=== PATIENT | male | born 1990 | race Caucasian/White ===

== ENCOUNTER 2017-09-19 07:55 | Emergency (ER) | payer MEDICAID ==
[~2017-09-19] VITALS: Ht 170.2 cm; Wt 170.2 kg
[2017-09-19 09:14] VITALS: BP 142/85
== END 2017-09-19 09:15 | disposition home or self-care (01) ==
LOC: ER 07:56
DX: S93.401A Sprain of unspecified ligament of right ankle, initial encounter (principal); X58.XXXA Exposure to other specified factors, initial encounter; Y93.89 Activity, other specified; Y92.89 Other specified places as the place of occurrence of the external cause; Y99.2 Volunteer activity
CPT/HCPCS: 73610; 99284

== ENCOUNTER 2017-09-21 18:50 | Emergency (ER) | payer MEDICAID ==
[~2017-09-21] VITALS: Ht 170.2 cm; Wt 168.0 kg
[2017-09-21 18:53] VITALS: BP 142/82
[2017-09-21] MEDS ORDERED: PANT-47 PO (19:15)
[2017-09-21] MEDS ORDERED: IBUP-1984 PO (19:15)
== END 2017-09-21 19:35 | disposition home or self-care (01) ==
LOC: ER 18:51
DX: G56.01 Carpal tunnel syndrome, right upper limb (principal)
CPT/HCPCS: 99283

== ENCOUNTER 2017-10-12 22:23 | Emergency (ER) | payer MEDICAID ==
[~2017-10-12] VITALS: Ht 170.2 cm; Wt 169.6 kg
[~2017-10-12 22:23] MED LIST: IBUP-1984 PO; PANT-47 PO
[2017-10-12 22:55] VITALS: BP 140/95
== END 2017-10-12 22:57 | disposition home or self-care (01) ==
LOC: ER 22:23
DX: S90.821A Blister (nonthermal), right foot, initial encounter (principal); Z79.899 Other long term (current) drug therapy; X58.XXXA Exposure to other specified factors, initial encounter; Y93.89 Activity, other specified; Y92.89 Other specified places as the place of occurrence of the external cause; Y99.8 Other external cause status
CPT/HCPCS: 99281

== ENCOUNTER 2017-10-15 22:51 | Emergency (ER) | payer MEDICAID ==
[~2017-10-15] VITALS: Ht 170.2 cm; Wt 167.5 kg
[2017-10-15 23:05] VITALS: BP 142/98
== END 2017-10-15 23:06 | disposition home or self-care (01) ==
LOC: ER 22:53
DX: F32.9 Major depressive disorder, single episode, unspecified (principal)
CPT/HCPCS: 99284

== ENCOUNTER 2017-10-30 06:04 | Emergency (ER) | payer MEDICAID ==
[~2017-10-30] VITALS: Ht 170.2 cm; Wt 172.0 kg
[~2017-10-30 06:04] MED LIST changes: -IBUP-1984 PO
[2017-10-30] MEDS ORDERED: diphenhydrAMINE 25 MG/10 ML UD oral solution PO ONE (06:35)
[2017-10-30 06:44] VITALS: BP 174/110
== END 2017-10-30 06:46 | disposition home or self-care (01) ==
LOC: ER 06:04
DX: J02.9 Acute pharyngitis, unspecified (principal); I10 Essential (primary) hypertension
CPT/HCPCS: 93005; 99283; Q0163

== ENCOUNTER 2018-01-31 11:30 | Emergency (ER) | payer MEDICAID ==
[2018-01-31 11:37] VITALS: BP 157/73
== END 2018-01-31 12:45 | disposition left against medical advice (07) ==
LOC: ER 11:31
DX: J02.9 Acute pharyngitis, unspecified (principal); Z53.21 Procedure and treatment not carried out due to patient leaving prior to being seen by health care provider

== ENCOUNTER 2018-02-01 00:38 | Emergency (ER) | payer MEDICAID ==
[~2018-02-01] VITALS: Ht 170.2 cm; Wt 179.9 kg
[2018-02-01 00:41] VITALS: BP 162/110
[2018-02-01 01:30] LABS: PARTIAL THROMBOPLASTIN TIME 30 SECONDS (22-32); PROTHROMBIN TIME 10.6 SECONDS (9.0-12.0)
[2018-02-01 01:34] LABS: ALANINE AMINOTRANSFERASE 46 U/L (12-78); ALBUMIN 3.8 G/DL (3.4-5.0); ALBUMIN/GLOBULIN RATIO 1.1 (1.1-1.5); ALKALINE PHOSPHATASE 37 IU/L (46-116); ANION GAP 9 (8-16); ASPARTATE AMINO TRANSFERASE 25 U/L (10-37); BILIRUBIN,TOTAL 0.6 MG/DL (0.1-1.0); BLOOD UREA NITROGEN 14 MG/DL (7-18); BUN/CREATININE RATIO 12.5 (5.4-32.0); CALCIUM 8.6 MG/DL (8.5-10.1); CHLORIDE 101 MMOL/L (99-107); CREATININE 1.12 MG/DL (0.60-1.10); GLUCOSE 105 MG/DL (70-104); POTASSIUM 3.9 MMOL/L (3.5-5.1); SODIUM 138 MMOL/L (135-145); TOTAL CARBON DIOXIDE 28.2 MMOL/L (24-32); TOTAL PROTEIN 7.3 G/DL (6.4-8.2); eGFR 78 ML/MIN
[2018-02-01] MEDS ORDERED: acetaminophen 325mg tablet PO ONE (02:20)
[2018-02-01 02:33] LABS: BASOPHILS % (AUTO) 0.2 % (0-1); EOSINOPHILS # (AUTO) 0.2 X10'3 (0-0.9); EOSINOPHILS % (AUTO) 3.4 % (0-6); HEMATOCRIT 43.5 % (42.0-52.0); HEMOGLOBIN 14.4 g/dl (14.0-17.9); LYMPHOCYTES # (AUTO) 1.4 X10'3 (1.1-4.8); LYMPHOCYTES % (AUTO) 20.1 % (21-51); MEAN CORPUSCULAR HEMOGLOBIN 25.2 PG (27.0-31.0); MEAN CORPUSCULAR HGB CONC 33.1 % (33.0-36.5); MEAN CORPUSCULAR VOLUME 76.2 FL (78-98); MEAN PLATELET VOLUME 9.3 FL (7.4-10.4); MONOCYTES # (AUTO) 1.3 X10'3 (0-0.9); PLATELET COUNT 214 X10'3 (140-440); RED BLOOD COUNT 5.71 X10'6 (4.70-6.10); RED CELL DISTRIBUTION WIDTH 14.9 % (11.5-14.5)
[2018-02-01 02:56] LABS: MONOCYTES % (AUTO) 18.3 % (2-12)
[2018-02-01 03:14] LABS: TOTAL CELLS COUNTED 100
[2018-02-01 03:15] LABS: PLATELET ESTIMATE NORMAL
[2018-02-02] MEDS ORDERED: FLUT16SP2 BOTHNARES (17:56)
[2018-02-02] MEDS ORDERED: LORA10TA61 PO (17:56)
== END 2018-02-01 03:12 | disposition home or self-care (01) ==
LOC: ER 00:38
DX: M94.0 Chondrocostal junction syndrome [Tietze] (principal); I10 Essential (primary) hypertension; G43.909 Migraine, unspecified, not intractable, without status migrainosus; E66.01 Morbid (severe) obesity due to excess calories
CPT/HCPCS: 36415; 71045; 80053; 84484; 85025; 85610; 85730; 93005; 99285

== ENCOUNTER 2018-02-02 16:46 | Emergency (ER) | payer MEDICAID ==
[~2018-02-02] VITALS: Ht 584.7 cm; Wt 176.0 kg
[2018-02-02 17:11] VITALS: BP 144/98
[2018-02-02] MEDS ORDERED: HYDROcodone/acetaminophen 5mg/325mg tablet PO ONE (17:55)
[2018-02-02] MEDS ORDERED: LORA10TA61 PO (17:56)
[2018-02-02] MEDS ORDERED: FLUT16SP2 BOTHNARES (17:56)
== END 2018-02-02 18:08 | disposition home or self-care (01) ==
LOC: ER 16:47
DX: J30.9 Allergic rhinitis, unspecified (principal); J02.9 Acute pharyngitis, unspecified; I10 Essential (primary) hypertension; Z79.899 Other long term (current) drug therapy
CPT/HCPCS: 99283

== ENCOUNTER 2018-02-12 09:47 | Emergency (ER) | payer MEDICAID ==
[~2018-02-12] VITALS: Ht 170.2 cm; Wt 145.4 kg
[~2018-02-12 09:47] MED LIST changes: +FLUT16SP2 BOTHNARES; +LORA10TA61 PO
[2018-02-12 09:53] VITALS: BP 131/88
[2018-02-12] MEDS ORDERED: AZIT-57 PO (13:12)
== END 2018-02-12 13:23 | disposition home or self-care (01) ==
LOC: ER 09:48
PROC: 3E1B78Z Irrigation of Ear using Irrigating Substance, Via Natural or Artificial Opening (ICD-10-PCS; principal; 2018-02-12)
DX: H61.21 Impacted cerumen, right ear (principal)
CPT/HCPCS: 69209; 99283

== ENCOUNTER 2018-04-05 04:16 | Emergency (ER) | payer MEDICAID ==
[~2018-04-05] VITALS: Ht 170.2 cm; Wt 174.3 kg
[2018-04-05 04:23] VITALS: BP 138/99
== END 2018-04-05 05:02 | disposition home or self-care (01) ==
LOC: ER 04:16
DX: R06.02 Shortness of breath (principal); I10 Essential (primary) hypertension; Z79.899 Other long term (current) drug therapy
CPT/HCPCS: 71045; 93005; 99284

== ENCOUNTER 2018-04-21 20:24 | Emergency (ER) | payer MEDICAID ==
[~2018-04-21] VITALS: Ht 170.2 cm; Wt 180.0 kg
[2018-04-21 20:27] VITALS: BP 145/89
[2018-04-21] MEDS ORDERED: sulfamethoxazole/trimethoprim DS (800/160mg) tablet PO ONE (22:05)
[2018-04-21] MEDS ORDERED: CEPH500C5 PO (22:05)
[2018-04-21] MEDS ORDERED: cephalexin 250mg capsule PO ONE (22:05)
[2018-04-21] MEDS ORDERED: SULF1TAB49 PO (22:05)
== END 2018-04-21 22:23 | disposition home or self-care (01) ==
LOC: ER 20:25
DX: L03.116 Cellulitis of left lower limb (principal); I10 Essential (primary) hypertension; Z79.899 Other long term (current) drug therapy
CPT/HCPCS: 99283

== ENCOUNTER 2018-04-22 19:17 | Emergency (ER) | payer MEDICAID ==
[~2018-04-22 19:17] MED LIST changes: +CEPH500C5 PO; +SULF1TAB49 PO
== END 2018-04-22 20:05 | disposition left against medical advice (07) ==
LOC: ER 19:18
DX: L02.818 Cutaneous abscess of other sites (principal); Z53.21 Procedure and treatment not carried out due to patient leaving prior to being seen by health care provider

== ENCOUNTER 2018-07-26 14:02 | Emergency (ER) | payer MEDICAID ==
[~2018-07-26] VITALS: Ht 170.2 cm; Wt 172.0 kg
[~2018-07-26 14:02] MED LIST changes: -SULF1TAB49 PO
[2018-07-26 14:09] VITALS: BP 146/92
[2018-07-26] MEDS ORDERED: PENI250T2 PO (14:13)
[2018-07-26] MEDS ORDERED: IBUP-1984 PO (14:24)
== END 2018-07-26 14:24 | disposition home or self-care (01) ==
LOC: ER 14:02
DX: K04.7 Periapical abscess without sinus (principal); I10 Essential (primary) hypertension; Z79.2 Long term (current) use of antibiotics; Z79.899 Other long term (current) drug therapy
CPT/HCPCS: 99283

== ENCOUNTER 2018-08-11 23:51 | Emergency (ER) | payer MEDICAID ==
[~2018-08-11] VITALS: Ht 170.2 cm; Wt 171.4 kg
[2018-08-11 23:51] VITALS: BP 163/91
[~2018-08-11 23:51] MED LIST changes: +IBUP-1984 PO
[2018-08-12] MEDS ORDERED: proCHLORperazine 10 MG/2 ml inj IM ONE (00:05)
[2018-08-12] MEDS ORDERED: diphenhydrAMINE 25mg capsule PO ONE (00:05)
[2018-08-12] MEDS ORDERED: ketorolac trometh inj. 60 MG/2 ML VIAL IM ONE (00:05)
[2018-08-12] MEDS: HYDROcodone/acetaminophen 5mg/325mg tablet PO ONE ×2 (00:45→00:48)
== END 2018-08-12 01:04 | disposition home or self-care (01) ==
LOC: ER 23:51
DX: H69.82 Other specified disorders of Eustachian tube, left ear (principal); I10 Essential (primary) hypertension; Z79.2 Long term (current) use of antibiotics; Z79.899 Other long term (current) drug therapy
CPT/HCPCS: 96372; 99283; J0780; J1885; Q0163

== ENCOUNTER 2018-09-17 08:57 | Emergency (ER) | payer MEDICAID ==
[~2018-09-17] VITALS: Ht 170.2 cm; Wt 170.0 kg
[~2018-09-17 08:57] MED LIST changes: -IBUP-1984 PO
[2018-09-17 09:01] VITALS: BP 165/113
== END 2018-09-17 10:04 | disposition home or self-care (01) ==
LOC: ER 08:57
DX: F31.9 Bipolar disorder, unspecified (principal); I10 Essential (primary) hypertension
CPT/HCPCS: 82948; 99284

== ENCOUNTER 2018-09-25 16:17 | Emergency (ER) | payer MEDICAID ==
[~2018-09-25] VITALS: Ht 170.2 cm; Wt 163.0 kg
[2018-09-25 16:38] VITALS: BP 149/92
[2018-09-25] MEDS ORDERED: DIVA500T4 PO (16:51)
== END 2018-09-25 17:01 | disposition home or self-care (01) ==
LOC: ER 16:18
DX: F31.9 Bipolar disorder, unspecified (principal); Z76.0 Encounter for issue of repeat prescription; I10 Essential (primary) hypertension; Z79.899 Other long term (current) drug therapy
CPT/HCPCS: 99283

== ENCOUNTER 2018-10-04 05:00 | Emergency (ER) | payer MEDICAID ==
[~2018-10-04] VITALS: Ht 170.2 cm; Wt 154.0 kg
[~2018-10-04 05:00] MED LIST changes: +DIVA500T4 PO
[2018-10-04 05:07] VITALS: BP 148/94
== END 2018-10-04 05:40 | disposition left against medical advice (07) ==
LOC: ER 05:01
DX: Z00.8 Encounter for other general examination (principal); Z53.21 Procedure and treatment not carried out due to patient leaving prior to being seen by health care provider

== ENCOUNTER 2018-10-06 00:09 | Emergency (ER) | payer MEDICAID ==
[~2018-10-06] VITALS: Ht 170.2 cm; Wt 152.7 kg
[2018-10-06 00:16] VITALS: BP 157/106
--- NOTE | 2018-10-06 01:02 | NUR ---
Arrives complaining of a plethra of complaints including blisters on his feet, not eating today "but that isn't really a problem", "I'm loosing weight, but I can't tell", "I can't make friends", "I really need a relationship in my life and can't find one"
== END 2018-10-06 01:15 | disposition home or self-care (01) ==
LOC: ER 00:09
DX: M79.671 Pain in right foot (principal); M79.672 Pain in left foot; I10 Essential (primary) hypertension; Z79.899 Other long term (current) drug therapy
CPT/HCPCS: 99281

== ENCOUNTER 2018-10-08 17:12 | Emergency (ER) | payer MEDICAID ==
[~2018-10-08] VITALS: Ht 170.2 cm; Wt 167.8 kg
[2018-10-08 17:16] VITALS: BP 137/102
[2018-10-08] MEDS ORDERED: TRIA15CR61 TP (17:39)
== END 2018-10-08 17:59 | disposition home or self-care (01) ==
LOC: ER 17:13
DX: S90.822A Blister (nonthermal), left foot, initial encounter (principal); S90.821A Blister (nonthermal), right foot, initial encounter; I10 Essential (primary) hypertension; X58.XXXA Exposure to other specified factors, initial encounter; Y93.89 Activity, other specified; Y92.89 Other specified places as the place of occurrence of the external cause; Y99.8 Other external cause status
CPT/HCPCS: 99283

== ENCOUNTER 2018-10-14 19:16 | Emergency (ER) | payer MEDICAID ==
[~2018-10-14] VITALS: Ht 170.2 cm; Wt 137.8 kg
[~2018-10-14 19:16] MED LIST changes: +TRIA15CR61 TP
[2018-10-14 19:20] VITALS: BP 159/93
[2018-10-14 20:55] LABS: ALANINE AMINOTRANSFERASE 27 U/L (12-78); ALBUMIN 3.6 G/DL (3.4-5.0); ALBUMIN/GLOBULIN RATIO 1.1 (1.1-1.5); ALKALINE PHOSPHATASE 35 IU/L (46-116); ANION GAP 8 (8-16); ASPARTATE AMINO TRANSFERASE 15 U/L (10-37); BILIRUBIN,TOTAL 0.3 MG/DL (0.1-1.0); BLOOD UREA NITROGEN 26 MG/DL (7-18); BUN/CREATININE RATIO 22.6 (5.4-32.0); CALCIUM 8.7 MG/DL (8.5-10.1); CHLORIDE 103 MMOL/L (99-107); CREATININE 1.15 MG/DL (0.60-1.10); GLUCOSE 91 MG/DL (70-104); POTASSIUM 4.2 MMOL/L (3.5-5.1); SODIUM 139 MMOL/L (135-145); TOTAL CARBON DIOXIDE 28.2 MMOL/L (24-32); eGFR 75 ML/MIN
== END 2018-10-14 21:25 | disposition home or self-care (01) ==
LOC: ER 19:16
DX: M79.18 Myalgia, other site (principal); R25.2 Cramp and spasm; I10 Essential (primary) hypertension; Z79.899 Other long term (current) drug therapy
CPT/HCPCS: 36415; 80053; 99283

== ENCOUNTER 2018-11-04 12:50 | Emergency (ER) | payer MEDICAID ==
[~2018-11-04] VITALS: Ht 170.2 cm; Wt 165.0 kg
[~2018-11-04 12:50] MED LIST changes: -DIVA500T4 PO
[2018-11-04] MEDS ORDERED: iohexol 300mg/ml 100ml inj. ONE (17:01)
[2018-11-04 17:12] LABS: BASOPHILS # (AUTO) 0.1 X10'3 (0-0.2); BASOPHILS % (AUTO) 0.7 % (0-1); EOSINOPHILS # (AUTO) 0.1 X10'3 (0-0.9); EOSINOPHILS % (AUTO) 0.7 % (0-6); HEMATOCRIT 43.3 % (42.0-52.0); HEMOGLOBIN 14.5 g/dl (14.0-17.9); LYMPHOCYTES # (AUTO) 1.6 X10'3 (1.1-4.8); LYMPHOCYTES % (AUTO) 13.3 % (21-51); MEAN CORPUSCULAR HGB CONC 33.4 g/dL (33.0-36.5); MEAN CORPUSCULAR VOLUME 74.9 FL (78-98); MONOCYTES # (AUTO) 1.6 X10'3 (0-0.9); MONOCYTES % (AUTO) 12.8 % (2-12); NEUTROPHILS # (AUTO) 8.8 X10'3 (1.8-7.7); NEUTROPHILS % (AUTO) 72.5 % (42-75); PLATELET COUNT 312 X10'3 (140-440); RED BLOOD COUNT 5.78 X10'6 (4.70-6.10); WHITE BLOOD COUNT 12.2 X10'3 (4.5-11.0)
[2018-11-04 17:13] LABS: CLARITY,URINE CLEAR (Clear); COLOR,URINE YELLOW (Yellow); GLUCOSE, URINE NEGATIVE (Neg); KETONES,URINE NEGATIVE (Neg); LEUKOCYTE ESTERASE ,URINE NEGATIVE (Neg); NITRITES, URINE NEGATIVE (Neg); OCCULT BLOOD,URINE NEGATIVE (Neg); PROTEIN,URINE NEGATIVE (Neg); UROBILINOGEN,URINE 0.2 E.U/dL (0.2-1.0)
[2018-11-04 17:23] LABS: UA COLLECTION TYPE URINAL
[2018-11-04 17:33] LABS: ALANINE AMINOTRANSFERASE 15 U/L (12-78); ALBUMIN 3.5 G/DL (3.4-5.0); ALBUMIN/GLOBULIN RATIO 0.9 (1.1-1.5); ALKALINE PHOSPHATASE 36 IU/L (46-116); ANION GAP 5 (8-16); ASPARTATE AMINO TRANSFERASE 12 U/L (10-37); BILIRUBIN,TOTAL 0.8 MG/DL (0.1-1.0); BLOOD UREA NITROGEN 16 MG/DL (7-18); BUN/CREATININE RATIO 16.5 (5.4-32.0); CHLORIDE 101 MMOL/L (99-107); CREATININE 0.97 MG/DL (0.60-1.10); GLUCOSE 93 MG/DL (70-104); POTASSIUM 3.6 MMOL/L (3.5-5.1); SODIUM 136 MMOL/L (135-145); TOTAL CARBON DIOXIDE 30.1 MMOL/L (24-32); TOTAL PROTEIN 7.4 G/DL (6.4-8.2); eGFR > 90 ML/MIN
[2018-11-04] MEDS ORDERED: CefTRIAXone/D5W-Rocephin 1gm 50 ML IV ONE (19:00)
[2018-11-04] MEDS ORDERED: CEPH-572 PO (19:06)
[2018-11-04] MEDS ORDERED: SULF1TAB49 PO (19:06)
[2018-11-04 19:27] VITALS: BP 124/71
[2018-11-05] MEDS ORDERED: CEPH-572 PO (08:48)
[2018-11-05] MEDS ORDERED: SULF1TAB49 PO (08:48)
== END 2018-11-04 19:58 | disposition home or self-care (01) ==
LOC: ER 12:50
DX: L03.314 Cellulitis of groin (principal); I10 Essential (primary) hypertension; Z79.899 Other long term (current) drug therapy
CPT/HCPCS: 36415; 74177; 80053; 81003; 83605; 84145; 85025; 87040; 93005; 96365; 99284; J0696; Q9967

== ENCOUNTER 2018-11-05 07:41 | Emergency (ER) | payer MEDICAID ==
[~2018-11-05 07:41] MED LIST changes: +CEPH-572 PO; +SULF1TAB49 PO
[2018-11-05 07:43] VITALS: BP 167/105
[2018-11-05] MEDS ORDERED: CEPH-572 PO (08:48)
[2018-11-05] MEDS ORDERED: SULF1TAB49 PO (08:48)
--- NOTE | 2018-11-05 08:52 | NUR ---
pt refused a new coat after he states he lost his coat in the waiting room yesterday. pt also refused a poncho after stating it's raining outside and pt is wet from the rain.
== END 2018-11-05 08:54 | disposition home or self-care (01) ==
LOC: ER 07:42
DX: L03.115 Cellulitis of right lower limb (principal); I10 Essential (primary) hypertension
CPT/HCPCS: 99283

== ENCOUNTER 2019-01-05 21:39 | Emergency (ER) | payer MEDICAID ==
[~2019-01-05] VITALS: Ht 172.7 cm; Wt 150.0 kg
[~2019-01-05 21:39] MED LIST changes: -CEPH-572 PO; -SULF1TAB49 PO; -TRIA15CR61 TP
[2019-01-06 00:57] LABS: BASOPHILS # (AUTO) 0.1 X10'3 (0-0.2); BASOPHILS % (AUTO) 0.6 % (0-1); EOSINOPHILS % (AUTO) 0.1 % (0-6); HEMATOCRIT 42.3 % (42.0-52.0); HEMOGLOBIN 13.8 g/dl (14.0-17.9); LYMPHOCYTES % (AUTO) 5.8 % (21-51); MEAN CORPUSCULAR HEMOGLOBIN 24.6 PG (27.0-31.0); MEAN CORPUSCULAR HGB CONC 32.6 g/dL (33.0-36.5); MEAN CORPUSCULAR VOLUME 75.4 FL (78-98); MEAN PLATELET VOLUME 9.4 FL (7.4-10.4); MONOCYTES % (AUTO) 11.6 % (2-12); NEUTROPHILS # (AUTO) 14.4 X10'3 (1.8-7.7); NEUTROPHILS % (AUTO) 81.9 % (42-75); PLATELET COUNT 279 X10'3 (140-440); RED BLOOD COUNT 5.61 X10'6 (4.70-6.10); RED CELL DISTRIBUTION WIDTH 16.9 % (11.5-14.5); WHITE BLOOD COUNT 17.6 X10'3 (4.5-11.0)
[2019-01-06 01:08] LABS: ALANINE AMINOTRANSFERASE 39 U/L (12-78); ALBUMIN/GLOBULIN RATIO 1.2 (1.1-1.5); ALKALINE PHOSPHATASE 40 IU/L (46-116); ANION GAP 11 (8-16); ASPARTATE AMINO TRANSFERASE 47 U/L (10-37); BILIRUBIN,TOTAL 1.1 MG/DL (0.1-1.0); BLOOD UREA NITROGEN 18 MG/DL (7-18); BUN/CREATININE RATIO 14.8 (5.4-32.0); CALCIUM 9.3 MG/DL (8.5-10.1); CHLORIDE 107 MMOL/L (99-107); CREATININE 1.22 MG/DL (0.60-1.10); GLUCOSE 113 MG/DL (70-104); POTASSIUM 3.9 MMOL/L (3.5-5.1); SODIUM 144 MMOL/L (135-145); TOTAL CARBON DIOXIDE 26.1 MMOL/L (24-32); TOTAL PROTEIN 7.4 G/DL (6.4-8.2); eGFR 70 ML/MIN
[2019-01-06 01:18] LABS: ETHANOL < 0.010 GM/DL (0.0-0.010)
--- NOTE | 2019-01-06 01:45 | NUR ---
Patient is lying in bed talking to himself quietly.
[2019-01-06 04:19] LABS: URINE AMPHETAMINE SCREEN NEGATIVE (Neg); URINE BARBITUATE SCREEN NEGATIVE (Neg); URINE BENZODIAZEPINES SCREEN NEGATIVE (Neg); URINE CANNABINOID SCREEN NEGATIVE (Neg); URINE COCAINE SCREEN NEGATIVE (Neg); URINE METHADONE SCREEN NEGATIVE (Neg); URINE OPIATE SCREEN NEGATIVE (Neg); URINE PHENCYCLIDINE SCREEN NEGATIVE (Neg)
[2019-01-06 04:34] LABS: CLARITY,URINE CLEAR (Clear); COLOR,URINE YELLOW (Yellow); GLUCOSE, URINE NEGATIVE (Neg); KETONES,URINE 40 mg/dl (Neg); LEUKOCYTE ESTERASE ,URINE NEGATIVE (Neg); NITRITES, URINE NEGATIVE (Neg); OCCULT BLOOD,URINE NEGATIVE (Neg); PH,URINE 5.5 (4.8-8.0); PROTEIN,URINE 30 mg/dl (Neg); UROBILINOGEN,URINE 0.2 E.U/dL (0.2-1.0)
[2019-01-06 04:36] LABS: UA COLLECTION TYPE CLN CATCH MIDSTREAM
[2019-01-06 04:39] LABS: BACTERIA,URINE FEW /HPF (Neg); RBC,URINE NONE SEEN /HPF (0-2); WBC,URINE 0-4 /HPF (0-4)
[2019-01-06 04:40] LABS: CELLULAR CAST 0-4 /LPF (NEGATIVE); HYALINE CASTS 0-3 /LPF (NEGATIVE); MUCUS STRANDS MODERATE /LPF (Neg); SQUAMOUS EPITHELIAL CELL,UR FEW /LPF (FEW)
--- NOTE | 2019-01-06 07:46 | NUR ---
Called [facility] and spoke with Layla to notify her that this pt needs to be seen. She will notify Aron or Dr Matt when they arrive.
--- NOTE | 2019-01-06 08:46 | NUR ---
Pt speaking with Cristina from [employer].
--- NOTE | 2019-01-06 11:11 | NUR ---
PT MOVED FROM BED 08 TO BED 22 VIA WHEELCHAIR, PT WAS FOUND WALKING AROUND WHEN BROUGHT IN BUT STATES TO OILER AND GREASER ABDOULAYE THAT HE CAN NOT WALK.
--- NOTE | 2019-01-06 11:46 | NUR ---
pT MOVED TO BED 22. uSED BATHROOM IN OVERFLOW AREA. Hyperverbal , paranoid and accusitory of staff, police etc. Currently speaking with Psychiatrist, often using derogitory language.
--- NOTE | 2019-01-06 12:27 | NUR ---
Patient's father's (goes by [employer] or [employer]) phone number is [phone].
[2019-01-06] MEDS ORDERED: DIVA500T2 PO (12:46)
[2019-01-06] MEDS ORDERED: LORazepam 1 MG tablet PO PRN ×2 (13:05)
[2019-01-06] MEDS ORDERED: diphenhydrAMINE 25mg capsule PO PRN (13:05)
--- NOTE | 2019-01-06 15:15 | NUR ---
Pt visiting with family and appears to be comfortable and listening to what they have to say.
--- NOTE | 2019-01-06 17:10 | NUR ---
Pt anxious yet willing and wanting to take medication, as he states he is trusting staff more now. He reports he has not slept in three days. Gave prn ativan, benadryl and haldol.
[2019-01-06] MEDS: haloperidol 5mg tablet PO PRN (17:19)
--- NOTE | 2019-01-06 18:25 | NUR ---
Patient sleeping supine. No distress observed. Continue to monitor.
[2019-01-06] MEDS: divalproex sodium 250mg tablet PO SCH (20:00)
--- NOTE | 2019-01-06 21:46 | NUR ---
Patient sleeping. No distress observed. Continue to monitor.
--- NOTE | 2019-01-07 00:17 | NUR ---
Patient sleeping on left side. No distress observed. RN placed a warm blanket on patient. Continue to monitor.
--- NOTE | 2019-01-07 02:19 | NUR ---
Patient continues to sleep on left side. No restlessness observed. Continue to monitor.
--- NOTE | 2019-01-07 03:47 | NUR ---
Patient awoke and asked to use the BR. Patient states due to the blisters on his feet he is unble to walk. Tech gave patient a urinal. Patient is calm, no distress observed. Continue to monitor.
--- NOTE | 2019-01-07 04:32 | NUR ---
Patient eating a sandwich. Continue to monitor.
--- NOTE | 2019-01-07 06:40 | NUR ---
Nursing Note: Pt laying on L side, blanket over his head talking quietly to himself, will continue to monitor.
--- NOTE | 2019-01-07 07:39 | NUR ---
Nursing Note: Pt up to restroom, pt performed own AM hygiene care. Now back in bed, no S&S of distress, will continue to monitor.
[2019-01-07] MEDS: divalproex sodium 250mg tablet PO SCH (07:49)
--- NOTE | 2019-01-07 08:00 | NUR ---
Nursing Note: Pt making multiple sexually inapproriate remarks. Redirected pt that these remarks are unacceptable. Will continue to monitor.
--- NOTE | 2019-01-07 08:39 | NUR ---
Nursing Note: Pt requesting this nurse call his father to come in to speak with him. Attempted to call father, but there was no answer. Notified pt that no one answered the phone. Pt currently sitting up in bed. No S&S of distress.
--- NOTE | 2019-01-07 08:50 | NUR ---
Pt asked to call his dad with no answer. Pt asked to talk to his sister Stacia. Pt is currently having a calm conversation with his sister.
--- NOTE | 2019-01-07 10:13 | NUR ---
Nursing Note: Cleansed wounds on pt's bilateral feet and heels with NS, applied nonadherent dressings, pt tolerated well. Pt laying in bed, awake, talkative, no S&S of distress, will continue to monitor.
--- NOTE | 2019-01-07 11:39 | NUR ---
Nursing Note: Pt laying on his back with his eyes open, RR even and unlabored, no S&S of distress, will continue to monitor.
[2019-01-07 12:41] LABS: BASOPHILS # (AUTO) 0.1 X10'3 (0-0.2); BASOPHILS % (AUTO) 0.5 % (0-1); EOSINOPHILS # (AUTO) 0.2 X10'3 (0-0.9); HEMATOCRIT 46.4 % (42.0-52.0); HEMOGLOBIN 15.1 g/dl (14.0-17.9); LYMPHOCYTES # (AUTO) 1.2 X10'3 (1.1-4.8); LYMPHOCYTES % (AUTO) 10.7 % (21-51); MEAN CORPUSCULAR HEMOGLOBIN 24.7 PG (27.0-31.0); MEAN CORPUSCULAR HGB CONC 32.6 g/dL (33.0-36.5); MEAN CORPUSCULAR VOLUME 75.7 FL (78-98); MEAN PLATELET VOLUME 10.1 FL (7.4-10.4); MONOCYTES # (AUTO) 1.4 X10'3 (0-0.9); MONOCYTES % (AUTO) 11.9 % (2-12); NEUTROPHILS # (AUTO) 8.7 X10'3 (1.8-7.7); NEUTROPHILS % (AUTO) 74.9 % (42-75); PLATELET COUNT 321 X10'3 (140-440); RED BLOOD COUNT 6.13 X10'6 (4.70-6.10); RED CELL DISTRIBUTION WIDTH 17.6 % (11.5-14.5); WHITE BLOOD COUNT 11.6 X10'3 (4.5-11.0)
--- NOTE | 2019-01-07 12:50 | NUR ---
Pt asked to call his dad. After talking on the phone pt is covering himself with blankets and crying.
--- NOTE | 2019-01-07 13:20 | NUR ---
Nursing Note: Faxed updated lab results to [facility] office.
--- NOTE | 2019-01-07 13:24 | NUR ---
Nursing Note: Pt laying in bed with eyes closed. He did not want to eat his lunch at this time. His tray is on his bedside table. No S&S of distress, will continue to monitor.
--- NOTE | 2019-01-07 13:50 | NUR ---
Report given to Jacey BILL from [facility]. stated will see if pt can be accepted.
[2019-01-07] MEDS ORDERED: LORazepam 1 MG tablet PO ONE (14:10)
[2019-01-07] MEDS: haloperidol 5mg tablet PO PRN (14:18)
--- NOTE | 2019-01-07 14:19 | NUR ---
[facility] will pickup pt at approx 3pm today for transport to [facility].
--- NOTE | 2019-01-07 14:23 | NUR ---
Nursing Note: Pt has increasing agitation, notified Dr. Malloy. Received order for 1mg Ativan and 5mg Haldol. Administered medication. Pt up to restroom at this time. Will continue to monitor.
--- NOTE | 2019-01-07 14:56 | NUR ---
Nursing Note: Pt's sister sitting at bedside visiting with pt. Will continue to monitor.
--- NOTE | 2019-01-07 15:27 | NUR ---
Nursing Note: Pt requested his father take home his wallet. Father took the wallet home.
--- NOTE | 2019-01-07 15:40 | NUR ---
At 1535, pt transferred to [facility] [place] via [facility] transportation vehicle. Pt left ED ambulatory, escorted by IBRAHIMA Morataya, security chief museum, and [facility] customer service driver. Pt took all possessions with him. He had previously sent his wallet home with his father. Pt cooperative while leaving ED.
[2019-01-07 15:55] VITALS: BP 131/80
== END 2019-01-07 15:35 ==
LOC: ER 21:40
DX: R45.851 Suicidal ideations (principal); F31.9 Bipolar disorder, unspecified; L53.8 Other specified erythematous conditions; I10 Essential (primary) hypertension; J02.9 Acute pharyngitis, unspecified; Z79.899 Other long term (current) drug therapy
CPT/HCPCS: 36415; 80053; 80164; 80305; 80320; 81001; 84443; 85025; 93005; 99285; Q0163

== ENCOUNTER 2019-01-17 04:15 | Emergency (ER) | payer MEDICAID ==
[~2019-01-17] VITALS: Ht 170.2 cm; Wt 147.0 kg
[~2019-01-17 04:15] MED LIST changes: -CEPH500C5 PO; +DIVA500T2 PO; -FLUT16SP2 BOTHNARES; -LORA10TA61 PO; -PANT-47 PO
[2019-01-17 04:16] VITALS: BP 142/76
== END 2019-01-17 04:24 | disposition home or self-care (01) ==
LOC: ER 04:16
DX: L84 Corns and callosities (principal); I10 Essential (primary) hypertension; Z79.899 Other long term (current) drug therapy
CPT/HCPCS: 99283

== ENCOUNTER 2019-01-17 21:01 | Emergency (ER) | payer MEDICAID ==
[~2019-01-17] VITALS: Ht 170.2 cm; Wt 147.7 kg
[2019-01-17 21:15] VITALS: BP 138/108
== END 2019-01-18 00:35 | disposition left against medical advice (07) ==
LOC: ER 21:01
DX: Z00.8 Encounter for other general examination (principal); Z53.21 Procedure and treatment not carried out due to patient leaving prior to being seen by health care provider; Z79.899 Other long term (current) drug therapy

== ENCOUNTER 2019-02-11 09:02 | Emergency (ER) | payer MEDICAID ==
[~2019-02-11] VITALS: Ht 170.2 cm; Wt 154.1 kg
[2019-02-11 09:12] VITALS: BP 128/90
--- NOTE | 2019-02-11 09:15 | NUR ---
BOUBACAR IN TRIAGE TO EVALUATE PT.
[2019-02-11] MEDS ORDERED: LIDOcaine 5% patch TP STA (09:26)
[2019-02-11] MEDS ORDERED: ACET-2119 PO (09:26)
[2019-02-11] MEDS ORDERED: IBUP-1984 PO (09:26)
[2019-02-11] MEDS ORDERED: ibuprofen tablet 400 MG TABLET PO ONE (09:30)
== END 2019-02-11 09:48 | disposition home or self-care (01) ==
LOC: ER 09:02
DX: S39.012A Strain of muscle, fascia and tendon of lower back, initial encounter (principal); I10 Essential (primary) hypertension; E66.01 Morbid (severe) obesity due to excess calories; Z79.899 Other long term (current) drug therapy; Z79.1 Long term (current) use of non-steroidal anti-inflammatories (NSAID); X58.XXXA Exposure to other specified factors, initial encounter; Y93.89 Activity, other specified; Y92.89 Other specified places as the place of occurrence of the external cause; Y99.8 Other external cause status
CPT/HCPCS: 99283

== ENCOUNTER 2019-02-13 15:21 | Emergency (ER) | payer MEDICAID ==
[~2019-02-13] VITALS: Ht 170.2 cm; Wt 152.3 kg
[~2019-02-13 15:21] MED LIST changes: +ACET-2119 PO; +IBUP-1984 PO
[2019-02-13 15:27] VITALS: BP 120/71
== END 2019-02-13 16:59 | disposition home or self-care (01) ==
LOC: ER 15:22
DX: R53.83 Other fatigue (principal); Z00.8 Encounter for other general examination; I10 Essential (primary) hypertension; Z79.899 Other long term (current) drug therapy
CPT/HCPCS: 99281

== ENCOUNTER 2019-02-19 11:10 | Emergency (ER) | payer MEDICAID ==
[~2019-02-19] VITALS: Ht 170.2 cm; Wt 152.5 kg
[~2019-02-19 11:10] MED LIST changes: -ACET-2119 PO; -IBUP-1984 PO
[2019-02-19 11:41] VITALS: BP 114/67
--- NOTE | 2019-02-19 13:29 | NUR ---
label stamper at bedside, gave pt ice water, jello and crackers, ambika well, no n/v
[2019-02-19 13:49] LABS: ALBUMIN 3.5 G/DL (3.4-5.0); ANION GAP 0 (8-16); BLOOD UREA NITROGEN 20 MG/DL (7-18); BUN/CREATININE RATIO 20.6 (5.4-32.0); CALCIUM 8.8 MG/DL (8.5-10.1); CHLORIDE 103 MMOL/L (99-107); CREATININE 0.97 MG/DL (0.60-1.10); GLUCOSE 96 MG/DL (70-104); POTASSIUM 4.6 MMOL/L (3.5-5.1); SODIUM 136 MMOL/L (135-145); TOTAL CARBON DIOXIDE 32.9 MMOL/L (24-32); eGFR > 90 ML/MIN
== END 2019-02-19 14:28 | disposition home or self-care (01) ==
LOC: ER 11:10
DX: T67.2XXA Heat cramp, initial encounter (principal); R25.1 Tremor, unspecified; R07.89 Other chest pain; I10 Essential (primary) hypertension; F31.9 Bipolar disorder, unspecified; Z79.899 Other long term (current) drug therapy; X58.XXXA Exposure to other specified factors, initial encounter; Y93.89 Activity, other specified; Y92.89 Other specified places as the place of occurrence of the external cause; Y99.8 Other external cause status
CPT/HCPCS: 36415; 80048; 93005; 99284

== ENCOUNTER 2019-02-23 17:26 | Emergency (ER) | payer MEDICAID | END 2019-02-23 18:25 | disposition left against medical advice (07) | LOC: ER 17:27 | DX: Z76.0 Encounter for issue of repeat prescription (principal); Z53.21 Procedure and treatment not carried out due to patient leaving prior to being seen by health care provider ==

== ENCOUNTER 2019-03-25 12:08 | Emergency (ER) | payer MEDICAID ==
[2019-03-26] MEDS ORDERED: ACET-2119 PO (23:30)
[2019-03-26] MEDS ORDERED: IBUP-1984 PO (23:30)
== END 2019-03-25 12:46 | disposition left against medical advice (07) ==
LOC: ER 12:08
DX: M54.6 Pain in thoracic spine (principal); Z53.21 Procedure and treatment not carried out due to patient leaving prior to being seen by health care provider

== ENCOUNTER 2019-03-26 21:24 | Emergency (ER) | payer MEDICAID ==
[~2019-03-26] VITALS: Ht 170.2 cm; Wt 146.0 kg
[2019-03-26 21:35] VITALS: BP 117/84
[2019-03-26] MEDS ORDERED: LIDOcaine 5% patch TP STA (23:27)
[2019-03-26] MEDS ORDERED: IBUP-1984 PO (23:30)
[2019-03-26] MEDS ORDERED: ACET-2119 PO (23:30)
[2019-03-26] MEDS ORDERED: ibuprofen tablet 400 MG TABLET PO ONE (23:30)
== END 2019-03-26 23:40 | disposition home or self-care (01) ==
LOC: ER 21:26
DX: M54.5 Low back pain (principal); I10 Essential (primary) hypertension; F31.9 Bipolar disorder, unspecified; Z79.899 Other long term (current) drug therapy
CPT/HCPCS: 99283

== ENCOUNTER 2019-04-04 21:14 | Emergency (ER) | payer MEDICAID ==
[~2019-04-04] VITALS: Ht 170.2 cm; Wt 145.4 kg
[~2019-04-04 21:14] MED LIST changes: +ACET-2119 PO; +IBUP-1984 PO
[2019-04-04 21:20] VITALS: BP 153/100
--- NOTE | 2019-04-04 21:45 | NUR ---
no obvious sign of glss in right foot. cleaned & flushed with NS.
== END 2019-04-04 22:12 | disposition home or self-care (01) ==
LOC: ER 21:15
DX: M79.672 Pain in left foot (principal); I10 Essential (primary) hypertension; F31.9 Bipolar disorder, unspecified; Z79.899 Other long term (current) drug therapy
CPT/HCPCS: 99281

== ENCOUNTER 2019-04-26 20:07 | Emergency (ER) | payer MEDICAID ==
[~2019-04-26] VITALS: Ht 170.2 cm; Wt 159.7 kg
[~2019-04-26 20:07] MED LIST changes: -ACET-2119 PO; -IBUP-1984 PO
[2019-04-26] MEDS ORDERED: DIVA500T2 PO (20:26)
[2019-04-26] MEDS ORDERED: HALO10TA13 PO (20:28)
[2019-04-26] MEDS ORDERED: HALO2TAB PO (20:29)
[2019-04-26] MEDS ORDERED: LIDOcaine 5% patch TP STA (21:24)
[2019-04-26] MEDS ORDERED: ketorolac tromethamine 15mg/ml inj. IM ONE (21:25)
[2019-04-26] MEDS ORDERED: LIDO700A32 TOP (21:25)
[2019-04-26 21:45] VITALS: BP 170/78
== END 2019-04-26 21:46 | disposition home or self-care (01) ==
LOC: ER 20:07
DX: S39.012A Strain of muscle, fascia and tendon of lower back, initial encounter (principal); I10 Essential (primary) hypertension; Z79.899 Other long term (current) drug therapy; X50.1XXA Overexertion from prolonged static or awkward postures, initial encounter; Y93.89 Activity, other specified; Y92.69 Other specified industrial and construction area as the place of occurrence of the external cause; Y99.9 Unspecified external cause status
CPT/HCPCS: 96372; 99283; J1885

== ENCOUNTER 2019-05-10 18:49 | Emergency (ER) | payer MEDICAID ==
[~2019-05-10] VITALS: Ht 170.2 cm; Wt 164.0 kg
[~2019-05-10 18:49] MED LIST changes: +HALO10TA13 PO; +HALO2TAB PO; +LIDO700A32 TOP
[2019-05-10 19:01] VITALS: BP 141/83
[2019-05-10] MEDS ORDERED: CEPH250T PO (19:59)
== END 2019-05-10 20:27 | disposition home or self-care (01) ==
LOC: ER 18:50
DX: L02.411 Cutaneous abscess of right axilla (principal); I10 Essential (primary) hypertension; Z79.899 Other long term (current) drug therapy
CPT/HCPCS: 99283

== ENCOUNTER 2019-10-01 14:01 | Emergency (ER) | payer MEDICAID ==
[~2019-10-01] VITALS: Ht 170.2 cm; Wt 174.3 kg
[2019-10-01 14:23] VITALS: BP 150/93
[2019-10-01] MEDS ORDERED: BENZ-16 PO (14:44)
[2019-10-01] MEDS ORDERED: AZIT-63 PO (14:44)
== END 2019-10-01 14:57 | disposition home or self-care (01) ==
LOC: ER 14:02
DX: J20.9 Acute bronchitis, unspecified (principal); Z79.2 Long term (current) use of antibiotics; Z79.899 Other long term (current) drug therapy
CPT/HCPCS: 93005; 99283

== ENCOUNTER 2019-10-31 20:08 | Emergency (ER) | payer MEDICAID ==
[~2019-10-31 20:08] MED LIST changes: +BENZ-16 PO
--- NOTE | 2019-10-31 20:10 | NUR ---
pt stated that he decided he didn't want to be seen afterall and he would make an appoinment with a PMD
== END 2019-10-31 20:30 | disposition left against medical advice (07) ==
LOC: ER 20:08
DX: M54.2 Cervicalgia (principal); Z53.21 Procedure and treatment not carried out due to patient leaving prior to being seen by health care provider

== ENCOUNTER 2019-11-15 14:59 | Emergency (ER) | payer MEDICAID ==
[~2019-11-15] VITALS: Ht 170.2 cm; Wt 176.0 kg
[2019-11-15] MEDS ORDERED: diazepam 5mg tablet PO ONE (17:15)
[2019-11-15] MEDS ORDERED: meclizine 12.5mg tablet PO ONE (17:15)
[2019-11-15 17:56] LABS: ALANINE AMINOTRANSFERASE 34 U/L (12-78); ALBUMIN/GLOBULIN RATIO 1.1 (1.1-1.5); ALKALINE PHOSPHATASE 32 IU/L (46-116); ANION GAP 7 (8-16); ASPARTATE AMINO TRANSFERASE 29 U/L (10-37); BILIRUBIN,TOTAL 0.6 MG/DL (0.1-1.0); BLOOD UREA NITROGEN 17 MG/DL (7-18); BUN/CREATININE RATIO 17.5 (5.4-32.0); CALCIUM 8.9 MG/DL (8.5-10.1); CHLORIDE 104 MMOL/L (99-107); CREATININE 0.97 MG/DL (0.60-1.10); GLUCOSE 97 MG/DL (70-104); POTASSIUM 3.8 MMOL/L (3.5-5.1); SODIUM 139 MMOL/L (135-145); TOTAL CARBON DIOXIDE 28.3 MMOL/L (24-32); TOTAL PROTEIN 7.7 G/DL (6.4-8.2); eGFR > 90 ML/MIN
[2019-11-15 17:59] LABS: BASOPHILS % (AUTO) 0.3 % (0-1); EOSINOPHILS # (AUTO) 0.1 X10'3 (0-0.9); EOSINOPHILS % (AUTO) 1.3 % (0-6); HEMATOCRIT 47.9 % (42.0-52.0); LYMPHOCYTES # (AUTO) 2.3 X10'3 (1.1-4.8); LYMPHOCYTES % (AUTO) 26.8 % (21-51); MEAN CORPUSCULAR HEMOGLOBIN 25.5 PG (27.0-31.0); MEAN CORPUSCULAR HGB CONC 33.3 g/dL (33.0-36.5); MEAN CORPUSCULAR VOLUME 76.5 FL (78-98); MEAN PLATELET VOLUME 8.9 FL (7.4-10.4); MONOCYTES % (AUTO) 11.4 % (2-12); NEUTROPHILS # (AUTO) 5.2 X10'3 (1.8-7.7); NEUTROPHILS % (AUTO) 60.2 % (42-75); PLATELET COUNT 247 X10'3 (140-440); RED BLOOD COUNT 6.26 X10'6 (4.70-6.10); WHITE BLOOD COUNT 8.6 X10'3 (4.5-11.0)
[2019-11-15 18:00] VITALS: BP 185/119
== END 2019-11-15 18:40 | disposition home or self-care (01) ==
LOC: ER 15:01
DX: R42 Dizziness and giddiness (principal); R07.89 Other chest pain; I10 Essential (primary) hypertension; F31.9 Bipolar disorder, unspecified; Z79.899 Other long term (current) drug therapy
CPT/HCPCS: 36415; 80053; 84484; 85025; 93005; 99284

== ENCOUNTER 2019-12-04 23:44 | Emergency (ER) | payer MEDICAID ==
[~2019-12-04] VITALS: Ht 170.2 cm; Wt 150.0 kg
[2019-12-04 23:49] VITALS: BP 145/89
== END 2019-12-05 00:12 | disposition home or self-care (01) ==
LOC: ER 23:45
DX: R53.83 Other fatigue (principal); I10 Essential (primary) hypertension; F31.9 Bipolar disorder, unspecified
CPT/HCPCS: 99283

== ENCOUNTER 2019-12-08 00:10 | Emergency (ER) | payer MEDICAID ==
[~2019-12-08] VITALS: Ht 170.2 cm; Wt 147.7 kg
[2019-12-08 00:17] VITALS: BP 166/96
== END 2019-12-08 00:48 | disposition home or self-care (01) ==
LOC: ER 00:10
DX: Z00.8 Encounter for other general examination (principal); I10 Essential (primary) hypertension; F31.9 Bipolar disorder, unspecified; Z79.899 Other long term (current) drug therapy
CPT/HCPCS: 99281

== ENCOUNTER 2019-12-24 10:28 | Emergency (ER) | payer MEDICAID ==
[~2019-12-24] VITALS: Ht 322.6 cm; Wt 150.0 kg
--- NOTE | 2019-12-24 10:41 | NUR ---
Pt affirms S/I without a plan saying "I have these thoughts all the time except for when I got out of [facility] after my meds were adjusted and I got sleep." Pt further reports non-med adherence for about "6 months of so." Pt denies H/I, audio or visual hallucinations at this time. He ambulted on his own from Triage and was more than willing to engage and respond to posed questions. Pt stated, "I just want to go back to [facility]." Information communicated to Primary RN Nikko.
--- NOTE | 2019-12-24 10:58 | NUR ---
patient settled in his new bed and gown
--- NOTE | 2019-12-24 11:01 | NUR ---
resting in bed, adivised to drink water so we can obtain a urine sample
[2019-12-24 11:31] LABS: CLARITY,URINE CLEAR (Clear); GLUCOSE, URINE NEGATIVE (Neg); KETONES,URINE TRACE mg/dl (Neg); LEUKOCYTE ESTERASE ,URINE NEGATIVE (Neg); NITRITES, URINE NEGATIVE (Neg); OCCULT BLOOD,URINE NEGATIVE (Neg); PROTEIN,URINE TRACE mg/dl (Neg)
[2019-12-24 11:34] LABS: URINE AMPHETAMINE SCREEN NEGATIVE (Neg); URINE BARBITUATE SCREEN NEGATIVE (Neg); URINE BENZODIAZEPINES SCREEN NEGATIVE (Neg); URINE CANNABINOID SCREEN NEGATIVE (Neg); URINE COCAINE SCREEN NEGATIVE (Neg); URINE METHADONE SCREEN NEGATIVE (Neg); URINE OPIATE SCREEN NEGATIVE (Neg); URINE PHENCYCLIDINE SCREEN NEGATIVE (Neg)
[2019-12-24] MEDS ORDERED: ARIP5TAB14 PO (11:36)
[2019-12-24] MEDS ORDERED: DIVA500T2 PO (11:36)
[2019-12-24 11:37] LABS: UA COLLECTION TYPE CLN CATCH MIDSTREAM
[2019-12-24 11:38] LABS: COLOR,URINE AMBER (Yellow)
[2019-12-24 11:39] LABS: BACTERIA,URINE FEW /HPF (Neg); MUCUS STRANDS MANY /LPF (Neg); RBC,URINE 0-2 /HPF (0-2); SQUAMOUS EPITHELIAL CELL,UR MANY /LPF (FEW); WBC,URINE 0-4 /HPF (0-4)
--- NOTE | 2019-12-24 12:03 | NUR ---
sitting in bed getting blood drawn
[2019-12-24 13:03] LABS: BASOPHILS % (AUTO) 0.5 % (0-1); EOSINOPHILS # (AUTO) 0.3 X10'3 (0-0.9); HEMATOCRIT 49.5 % (42.0-52.0); HEMOGLOBIN 16.3 g/dl (14.0-17.9); LYMPHOCYTES # (AUTO) 1.5 X10'3 (1.1-4.8); LYMPHOCYTES % (AUTO) 16.1 % (21-51); MEAN CORPUSCULAR HEMOGLOBIN 25.6 PG (27.0-31.0); MEAN CORPUSCULAR HGB CONC 32.9 g/dL (33.0-36.5); MEAN CORPUSCULAR VOLUME 77.8 FL (78-98); MEAN PLATELET VOLUME 9.1 FL (7.4-10.4); MONOCYTES # (AUTO) 0.9 X10'3 (0-0.9); MONOCYTES % (AUTO) 10.2 % (2-12); NEUTROPHILS # (AUTO) 6.5 X10'3 (1.8-7.7); NEUTROPHILS % (AUTO) 70.2 % (42-75); PLATELET COUNT 249 X10'3 (140-440); RED BLOOD COUNT 6.36 X10'6 (4.70-6.10); RED CELL DISTRIBUTION WIDTH 16.9 % (11.5-14.5); WHITE BLOOD COUNT 9.2 X10'3 (4.5-11.0)
[2019-12-24 13:12] LABS: ALANINE AMINOTRANSFERASE 27 U/L (12-78); ALBUMIN 3.5 G/DL (3.4-5.0); ALBUMIN/GLOBULIN RATIO 1.1 (1.1-1.5); ALKALINE PHOSPHATASE 34 IU/L (46-116); ANION GAP 8 (8-16); ASPARTATE AMINO TRANSFERASE 23 U/L (10-37); BILIRUBIN,TOTAL 0.9 MG/DL (0.1-1.0); BLOOD UREA NITROGEN 12 MG/DL (7-18); BUN/CREATININE RATIO 11.4 (5.4-32.0); CALCIUM 8.6 MG/DL (8.5-10.1); CHLORIDE 105 MMOL/L (99-107); CREATININE 1.05 MG/DL (0.60-1.10); ETHANOL < 0.010 GM/DL (0.0-0.010); GLUCOSE 95 MG/DL (70-104); POTASSIUM 3.5 MMOL/L (3.5-5.1); SODIUM 141 MMOL/L (135-145); TOTAL CARBON DIOXIDE 28.3 MMOL/L (24-32); TOTAL PROTEIN 6.6 G/DL (6.4-8.2); eGFR 83 ML/MIN
--- NOTE | 2019-12-24 13:13 | NUR ---
resting in bed
[2019-12-24 13:14] LABS: ACETAMINOPHEN < 2.0 UG/ML (10-30)
--- NOTE | 2019-12-24 14:35 | NUR ---
PACKET FAXED TO [facility]
--- NOTE | 2019-12-24 14:46 | NUR ---
Patient sitting in the bed keeps asking multiple question and making multiple request for food and sleeping meds
--- NOTE | 2019-12-24 15:10 | NUR ---
talking to sister on the phone
--- NOTE | 2019-12-24 16:04 | NUR ---
Laying down in bed relaxing
--- NOTE | 2019-12-24 17:23 | NUR ---
using the restroom
--- NOTE | 2019-12-24 18:08 | NUR ---
Talking to [facility]
--- NOTE | 2019-12-24 18:28 | NUR ---
PA notified of BP no new orders
--- NOTE | 2019-12-24 19:30 | NUR ---
PT IS SITTING ON SIDE OF BED. NO SIGNS OF DISTRESS.
--- NOTE | 2019-12-24 20:30 | NUR ---
PT HAS BEEN TALKING ABOUT RELATIONSHIPS WITH GIRLFRIEND OVER AND OVER TO HIMSELF OR AT TIMES GET ATTENTION FROM OTHERS
--- NOTE | 2019-12-24 21:30 | NUR ---
STILL TALKS ABOUT GIRLFRIEND.
[2019-12-24] MEDS ORDERED: Melatonin 3mg tablet PO ONE (22:05)
[2019-12-24] MEDS ORDERED: LORazepam 1 MG tablet PO ONE ×2 (22:05→23:30)
[2019-12-24] MEDS ORDERED: Melatonin 3mg tablet PO SCH (22:05)
--- NOTE | 2019-12-24 22:10 | NUR ---
Patient is restless and continues to get out of bed and remove his clothing. Patient states he can't sleep because, "I don't need to. My body instantly heals itself." Patient offered medication to help him relax and sleep which he agrees to. Spoke to Dr. Marquez about the patient and his condition. Orders placed and patient medicated.
--- NOTE | 2019-12-24 22:20 | NUR ---
MELATONIN AND ATIVAN GIVEN. PT KEEP SAYING NOT GOINT TO WORK.
--- NOTE | 2019-12-24 22:46 | NUR ---
RECEIVED PHONE CALL FROM [employer]. ANSWERED SOME QUESTIONS. [facility] IS FULL RIGHT NOW. ALSO NEED TSH LEVEL. WILL GET AND ORDER
--- NOTE | 2019-12-24 23:11 | NUR ---
PT BELIEVES THAT HE PEED OUT MEDS THAT JUST TOOK.
[2019-12-24] MEDS ORDERED: diphenhydrAMINE 25mg capsule PO ONE (23:30)
[2019-12-24] MEDS ORDERED: haloperidol 5mg tablet PO ONE (23:30)
--- NOTE | 2019-12-24 23:41 | NUR ---
pt still keep talking and getting up agitated. received order for ativan, halodol, benedryl.
--- NOTE | 2019-12-25 00:43 | NUR ---
RELIEVING RN FOR BREAK, PT IS SLEEPING, RESP EVEN AND UNLABORED
--- NOTE | 2019-12-25 01:14 | NUR ---
PT IS SLEEPING. NO SIGNS OF DISTRESS
--- NOTE | 2019-12-25 01:18 | NUR ---
NOTIFIED LAB RESULT OF THS TO KENNETH MARTINEZ [facility].
--- NOTE | 2019-12-25 02:26 | NUR ---
PT IS SLEEPING. NO SIGNS OF DISTRESS
--- NOTE | 2019-12-25 03:01 | NUR ---
PT IS SLEEPING. NO SIGNS OF DISTRESS
--- NOTE | 2019-12-25 03:52 | NUR ---
PT IS SLEEPING. NO SIGNS OF DISTRESS
--- NOTE | 2019-12-25 05:21 | NUR ---
PT IS SLEEPING. NO SIGNS OF DISTRESS
--- NOTE | 2019-12-25 06:17 | NUR ---
PT UP TO BATHROOM. PT WAS SAYING "I CAN'T WALK STRAIGHT" BUT PT AMBULATED FINE. WITHOUT LEANING OR TRIPPING.
--- NOTE | 2019-12-25 06:20 | NUR ---
I WILLIE BLOOD. PT STATED HE FEELS FINE AFTER SLEEP.
[2019-12-25] MEDS ORDERED: divalproex sodium 500mg tablet.DR PO SCH (08:00)
[2019-12-25] MEDS ORDERED: aripiprazole 5mg tablet PO SCH (08:00)
--- NOTE | 2019-12-25 12:16 | NUR ---
Patient frequently getting up and amb to desk and repeating questions and talking about getting , and an uncle staying at his house.
--- NOTE | 2019-12-25 14:19 | NUR ---
Patient sitting upright in bed and requests a conversation. He states that he wants to leave and, "make things right because I lied." Patient states he lied about feeling suicidal because he was upset and, "over thinking things" with a romantic interest. Patient updated on POC and yells, "fuck!" Boundaries set with patient and he apologizes. He continues talking to himself and yelling across the room at staff.
--- NOTE | 2019-12-25 16:26 | NUR ---
Pt. up to restroom
--- NOTE | 2019-12-25 16:34 | NUR ---
Pt. out of restroom, pacing between nurses station and his bed. Pt. has been asked by staff to return to bed.
[2019-12-25 17:44] VITALS: BP 160/109
--- NOTE | 2019-12-25 18:49 | NUR ---
patient is intrusive, making innapropriate comments to female tech. pt was redirected back to bed.
--- NOTE | 2019-12-25 19:58 | NUR ---
pt continues to be intrusive, wants to discuss personal details with staff about his love life. pt reminded about having appropriate conversations at the hospital.
== END 2019-12-25 21:36 ==
LOC: ER 10:28
DX: R45.851 Suicidal ideations (principal); I10 Essential (primary) hypertension; F31.9 Bipolar disorder, unspecified; Z79.899 Other long term (current) drug therapy
CPT/HCPCS: 36415; 80053; 80305; 80320; 80329; 81001; 84443; 85025; 99285; Q0163

== ENCOUNTER 2019-12-27 15:04 | Emergency (ER) | payer MEDICAID ==
[~2019-12-27] VITALS: Ht 170.2 cm; Wt 136.4 kg
[~2019-12-27 15:04] MED LIST changes: +ARIP5TAB14 PO; -BENZ-16 PO; -HALO10TA13 PO; -HALO2TAB PO; -LIDO700A32 TOP
[2019-12-27 15:09] VITALS: BP 155/115
== END 2019-12-27 15:56 | disposition home or self-care (01) ==
LOC: ER 15:04
DX: Z02.89 Encounter for other administrative examinations (principal); E66.9 Obesity, unspecified; I10 Essential (primary) hypertension; F31.9 Bipolar disorder, unspecified; Z79.899 Other long term (current) drug therapy
CPT/HCPCS: 99283

== ENCOUNTER 2019-12-27 19:45 | Emergency (ER) | payer MEDICAID ==
[~2019-12-27] VITALS: Ht 170.2 cm; Wt 155.9 kg
[2019-12-27 20:03] VITALS: BP 170/117
--- NOTE | 2019-12-27 20:18 | NUR ---
Pt placed in T2 and sen by DEANDRE Bhatti (this provider saw him just a few hrs ago). Pt states again that he needs to rest and calm down. "changes are going on".
--- NOTE | 2019-12-27 20:32 | NUR ---
DEANDRE THOMAS TALKING AT LENGTH WITH PT IN T2. PT REPORTS HE NO LONGER TAKES ANY MEDICATIONS "I DONT NEED THEM...IM DOING GOO WITHOUT THEM". PREVIOUS SCRIPTS FOR ABILIFY, HALDOL AND DEPAKOTE, LAST PERSCRIBED IN 2018. WAS SEEING SYDNIE SILVEIRA , "SHES CLOSED" "I GOT TO [employer] [place]...MOSTLY I JUST NEED TO TALK TO PEOPLE.". DEANDRE THOMAS REQUEST I GIVE PT FOOD AND WATER AND SOEM TIME TO EAT IT AND THEN DC.
== END 2019-12-27 21:00 | disposition home or self-care (01) ==
LOC: ER 19:46
DX: R53.83 Other fatigue (principal); I10 Essential (primary) hypertension; R51 Headache; F31.9 Bipolar disorder, unspecified; Z79.899 Other long term (current) drug therapy
CPT/HCPCS: 99281

== ENCOUNTER 2019-12-28 03:55 | Emergency (ER) | payer MEDICAID ==
[~2019-12-28] VITALS: Ht 170.2 cm; Wt 154.0 kg
== END 2019-12-28 05:56 | disposition home or self-care (01) ==
LOC: ER 03:55
DX: R52 Pain, unspecified (principal); I10 Essential (primary) hypertension; F31.9 Bipolar disorder, unspecified; Z79.899 Other long term (current) drug therapy; Z60.2 Problems related to living alone
CPT/HCPCS: 99281

== ENCOUNTER 2020-01-10 20:11 | Emergency (ER) | payer MEDICAID ==
[~2020-01-10] VITALS: Ht 170.2 cm; Wt 130.0 kg
--- NOTE | 2020-01-10 20:27 | NUR ---
Provider evaluated the patient in the ambulance bay and is concerned about the level of redness/sunburn the patient has on his face, arms, and hands. Pt reports he has not been eating or drinking much and not sleeping well. Pt has unclear history of presenting symptoms.
--- NOTE | 2020-01-10 21:55 | NUR ---
pa notifed about delayed blood draw. rn given "ok" to give pt water for ua. pt understands current plan of treatment.
[2020-01-10 22:35] VITALS: BP 168/99
[2020-01-10 22:37] LABS: CLARITY,URINE CLEAR (Clear); COLOR,URINE YELLOW (Yellow); GLUCOSE, URINE NEGATIVE (Neg); KETONES,URINE NEGATIVE (Neg); LEUKOCYTE ESTERASE ,URINE NEGATIVE (Neg); NITRITES, URINE NEGATIVE (Neg); OCCULT BLOOD,URINE TRACE-INTACT (Neg); PROTEIN,URINE 30 mg/dl (Neg); UROBILINOGEN,URINE 0.2 E.U/dL (0.2-1.0)
[2020-01-10 22:45] LABS: UA COLLECTION TYPE NON-SPECIFIED
[2020-01-10 22:49] LABS: AMORPHOUS URATES 1+; BACTERIA,URINE NONE SEEN /HPF (Neg); RBC,URINE NONE SEEN /HPF (0-2); SQUAMOUS EPITHELIAL CELL,UR MODERATE /LPF (FEW); WBC,URINE NONE SEEN /HPF (0-4)
== END 2020-01-10 22:57 | disposition home or self-care (01) ==
LOC: ER 20:11
DX: S90.822A Blister (nonthermal), left foot, initial encounter (principal); S90.821A Blister (nonthermal), right foot, initial encounter; F31.9 Bipolar disorder, unspecified; I10 Essential (primary) hypertension; Z79.899 Other long term (current) drug therapy; X30.XXXA Exposure to excessive natural heat, initial encounter; Y93.89 Activity, other specified; Y92.89 Other specified places as the place of occurrence of the external cause; Y99.8 Other external cause status
CPT/HCPCS: 81001; 99283

== ENCOUNTER 2020-01-25 11:35 | Emergency (ER) | payer MEDICAID ==
[~2020-01-25] VITALS: Ht 170.2 cm; Wt 159.4 kg
[~2020-01-25 11:35] MED LIST changes: -ARIP5TAB14 PO; +DIPH-423 PO; -DIVA500T2 PO; +HALO10TA13 PO; +HALO2TAB PO; +LISI10TA4 PO; +NICO-668 BC; +TRAZ-251 PO
[2020-01-25 14:10] LABS: CLARITY,URINE CLEAR (Clear); COLOR,URINE YELLOW (Yellow); GLUCOSE, URINE NEGATIVE (Neg); KETONES,URINE NEGATIVE (Neg); LEUKOCYTE ESTERASE ,URINE NEGATIVE (Neg); NITRITES, URINE NEGATIVE (Neg); OCCULT BLOOD,URINE TRACE-INTACT (Neg); PROTEIN,URINE NEGATIVE (Neg); UROBILINOGEN,URINE 0.2 E.U/dL (0.2-1.0)
[2020-01-25 14:13] LABS: UA COLLECTION TYPE NON-SPECIFIED
[2020-01-25 14:16] LABS: BASOPHILS # (AUTO) 0.1 X10'3 (0-0.2); BASOPHILS % (AUTO) 0.6 % (0-1); EOSINOPHILS # (AUTO) 0.2 X10'3 (0-0.9); EOSINOPHILS % (AUTO) 1.9 % (0-6); HEMATOCRIT 47.3 % (42.0-52.0); HEMOGLOBIN 15.7 g/dl (14.0-17.9); LYMPHOCYTES # (AUTO) 2.2 X10'3 (1.1-4.8); LYMPHOCYTES % (AUTO) 19.8 % (21-51); MEAN CORPUSCULAR HEMOGLOBIN 26.1 PG (27.0-31.0); MEAN CORPUSCULAR HGB CONC 33.2 g/dL (33.0-36.5); MEAN CORPUSCULAR VOLUME 78.5 FL (78-98); MEAN PLATELET VOLUME 8.4 FL (7.4-10.4); MONOCYTES # (AUTO) 1.2 X10'3 (0-0.9); MONOCYTES % (AUTO) 10.8 % (2-12); NEUTROPHILS # (AUTO) 7.4 X10'3 (1.8-7.7); NEUTROPHILS % (AUTO) 66.9 % (42-75); PLATELET COUNT 276 X10'3 (140-440); RED BLOOD COUNT 6.02 X10'6 (4.70-6.10); RED CELL DISTRIBUTION WIDTH 16.1 % (11.5-14.5); WHITE BLOOD COUNT 11.1 X10'3 (4.5-11.0)
[2020-01-25 14:17] LABS: URINE AMPHETAMINE SCREEN NEGATIVE (Neg); URINE BARBITUATE SCREEN NEGATIVE (Neg); URINE BENZODIAZEPINES SCREEN NEGATIVE (Neg); URINE CANNABINOID SCREEN NEGATIVE (Neg); URINE COCAINE SCREEN NEGATIVE (Neg); URINE METHADONE SCREEN NEGATIVE (Neg); URINE OPIATE SCREEN NEGATIVE (Neg); URINE PHENCYCLIDINE SCREEN NEGATIVE (Neg)
[2020-01-25 14:28] LABS: MUCUS STRANDS FEW /LPF (Neg); SQUAMOUS EPITHELIAL CELL,UR FEW /LPF (FEW)
[2020-01-25 14:29] LABS: BACTERIA,URINE FEW /HPF (Neg); RBC,URINE 0-2 /HPF (0-2); WBC,URINE 0-4 /HPF (0-4)
[2020-01-25 14:31] LABS: ALANINE AMINOTRANSFERASE 25 U/L (12-78); ALBUMIN 3.6 G/DL (3.4-5.0); ALBUMIN/GLOBULIN RATIO 1.1 (1.1-1.5); ALKALINE PHOSPHATASE 33 IU/L (46-116); ANION GAP 6 (8-16); ASPARTATE AMINO TRANSFERASE 18 U/L (10-37); BILIRUBIN,TOTAL 0.3 MG/DL (0.1-1.0); BLOOD UREA NITROGEN 23 MG/DL (7-18); CALCIUM 8.6 MG/DL (8.5-10.1); CHLORIDE 105 MMOL/L (99-107); ETHANOL < 0.010 GM/DL (0.0-0.010); GLUCOSE 100 MG/DL (70-104); POTASSIUM 4.2 MMOL/L (3.5-5.1); SODIUM 140 MMOL/L (135-145); TOTAL CARBON DIOXIDE 28.8 MMOL/L (24-32); eGFR 88 ML/MIN
--- NOTE | 2020-01-25 14:56 | NUR ---
Pt continues to lay on pam talking to himself. Pt cooperative at this time. Pt does not know his medication list.
--- NOTE | 2020-01-25 14:57 | NUR ---
Pt states his dad might know his meds, but does not know his phone number.
--- NOTE | 2020-01-25 15:27 | NUR ---
Meal tray ordered for patient.
--- NOTE | 2020-01-25 17:00 | NUR ---
Pt provided snack. Pt changed into green scrub pants and large hospital gown. Pt belongings bagged and inventoried. Pt continues to talk to himself. Pt cooperative and calm.
--- NOTE | 2020-01-25 18:55 | NUR ---
PT MOVED FROM BED 16 IN MAIN ER TO BED 25.
[2020-01-25] MEDS ORDERED: HALO5TAB PO (19:11)
[2020-01-25] MEDS ORDERED: HALO2TAB PO (19:11)
[2020-01-25] MEDS ORDERED: LISI10TA4 PO (19:12)
[2020-01-25] MEDS ORDERED: TRAZ-251 PO (19:13)
[2020-01-25] MEDS ORDERED: DIPH-423 PO (19:14)
[2020-01-25] MEDS ORDERED: LORazepam 1 MG tablet PO ONE (19:20)
[2020-01-25] MEDS ORDERED: diphenhydrAMINE 25mg capsule PO PRN (19:25)
[2020-01-25] MEDS: haloperidol 5mg tablet PO SCH (20:03)
[2020-01-25] MEDS: lisinopril 10 MG tablet PO SCH (20:04)
[2020-01-25] MEDS ORDERED: haloperidol 1mg tablet PO SCH (21:00)
[2020-01-25] MEDS ORDERED: traZODone 50mg tablet PO SCH (21:00)
--- NOTE | 2020-01-25 22:00 | NUR ---
PT IS TALKING TO HIMSELF, SPEECH IS PRESSURED AND TANGENTAL. PT WILL OCCASIONALLY COME UP TO NURSES STATION TO ASK A QUESTION, USUALLY BIZARRE.
--- NOTE | 2020-01-25 22:02 | NUR ---
Relieving Primary RN, Adrian, for break. [facility] was jsut at bedside evaluating Pt. Pt is restless and up and down from the bed and pacing at bedside when up. He is talking nonstop to himself and bizzare "I dont count as a kid...im not a kid..what is the custody black about bout...did he break the law...how about those papers...wait a minute, im getting today", yet stops in mid sentence stating "can i have a glass of water" when asked if needs socks "no i don't need them".
--- NOTE | 2020-01-25 22:08 | NUR ---
SCOTT PAIGE RN, WORKING ON PTS EVALUATION NOW.
--- NOTE | 2020-01-25 22:22 | NUR ---
PT APPEARS TO BE SLEEPING, NO S/S DISTRESS NOTED.
--- NOTE | 2020-01-25 23:00 | NUR ---
PT APPEARS TO BE SLEEPING, NO S/S DISTRESS NOTED.
--- NOTE | 2020-01-26 00:05 | NUR ---
PT IS SLEEPING, NO S/S OF DISTRESS NOTED.
--- NOTE | 2020-01-26 01:35 | NUR ---
pt appears to be sleeping, no s/s of distress noted.
[2020-01-26 06:08] VITALS: BP_DIAS 80
--- NOTE | 2020-01-26 06:20 | NUR ---
Pt ambulated to nurses station asking when breakfast trays would be arriving; was told they typically arrive in about 90 minutes, at 0800.
--- NOTE | 2020-01-26 06:40 | NUR ---
Pt requesting breakfast again. Reminded pt of typical 0800 arrival of breakfast. Snack offered.
--- NOTE | 2020-01-26 07:00 | NUR ---
Pt responding to internal stimuli. Appears restless, and is pacing his room.
[2020-01-26 07:49] VITALS: BP_SYST 127
[2020-01-26] MEDS: lisinopril 10 MG tablet PO SCH (07:49)
[2020-01-26] MEDS: haloperidol 5mg tablet PO SCH (07:49)
--- NOTE | 2020-01-26 08:39 | NUR ---
Pt intermittently getting up and walking the unit, states he feels dizzy but adds that this is not abnormal for him.
--- NOTE | 2020-01-26 10:31 | NUR ---
[facility] to get nurse to nurse report for pt and for her to be able to present the pt's case to her MD. waiting on an update.
--- NOTE | 2020-01-26 11:10 | NUR ---
pt up to the bathroom and asking about lunch. walked back to bed and now lying down.
== END 2020-01-26 11:40 ==
LOC: ER 11:35
DX: R45.851 Suicidal ideations (principal); F31.9 Bipolar disorder, unspecified; Z79.899 Other long term (current) drug therapy
CPT/HCPCS: 36415; 80053; 80305; 80320; 81001; 85025; 99285; Q0163

== ENCOUNTER 2020-02-09 11:10 | Emergency (ER) | payer MEDICAID ==
[~2020-02-09] VITALS: Ht 165.1 cm; Wt 120.0 kg
[~2020-02-09 11:10] MED LIST changes: -HALO10TA13 PO; +HALO5TAB PO; -NICO-668 BC
[2020-02-09 11:14] VITALS: BP 138/104
--- NOTE | 2020-02-09 11:20 | NUR ---
pt bib ems from [facility] with 5150 orders for maniac episode .pt has hx of bpd, schizophrenia,anxiety ,pt non cooperative at this time ,flight of idea.repetion of same phrase again and again,pt is mad the fact he is brought back to hospital as he just came out ,pt stated that his bone are going,he need to pay bill,otherwise he is goingto lose everthing,pt is beating head with his hands the fact he is here.
--- NOTE | 2020-02-09 11:36 | NUR ---
6160 form placed in mental health binder by shaniqua laurent
[2020-02-09 11:57] LABS: BASOPHILS % (AUTO) 0.7 % (0-1); EOSINOPHILS # (AUTO) 0.2 X10'3 (0-0.9); EOSINOPHILS % (AUTO) 2.6 % (0-6); HEMATOCRIT 51.4 % (42.0-52.0); HEMOGLOBIN 17.2 g/dl (14.0-17.9); LYMPHOCYTES # (AUTO) 1.7 X10'3 (1.1-4.8); LYMPHOCYTES % (AUTO) 22.9 % (21-51); MEAN CORPUSCULAR HEMOGLOBIN 26.4 PG (27.0-31.0); MEAN CORPUSCULAR HGB CONC 33.4 g/dL (33.0-36.5); MEAN CORPUSCULAR VOLUME 78.9 FL (78-98); MEAN PLATELET VOLUME 8.9 FL (7.4-10.4); MONOCYTES # (AUTO) 0.8 X10'3 (0-0.9); MONOCYTES % (AUTO) 10.6 % (2-12); NEUTROPHILS # (AUTO) 4.7 X10'3 (1.8-7.7); NEUTROPHILS % (AUTO) 63.2 % (42-75); PLATELET COUNT 209 X10'3 (140-440); RED BLOOD COUNT 6.52 X10'6 (4.70-6.10); RED CELL DISTRIBUTION WIDTH 15.9 % (11.5-14.5); WHITE BLOOD COUNT 7.4 X10'3 (4.5-11.0)
[2020-02-09 12:22] LABS: URINE AMPHETAMINE SCREEN NEGATIVE (Neg); URINE BARBITUATE SCREEN NEGATIVE (Neg); URINE BENZODIAZEPINES SCREEN NEGATIVE (Neg); URINE CANNABINOID SCREEN NEGATIVE (Neg); URINE COCAINE SCREEN NEGATIVE (Neg); URINE METHADONE SCREEN NEGATIVE (Neg); URINE OPIATE SCREEN NEGATIVE (Neg); URINE PHENCYCLIDINE SCREEN NEGATIVE (Neg)
[2020-02-09 12:24] LABS: ALANINE AMINOTRANSFERASE 22 U/L (12-78); ALBUMIN 3.8 G/DL (3.4-5.0); ALBUMIN/GLOBULIN RATIO 1.1 (1.1-1.5); ALKALINE PHOSPHATASE 29 IU/L (46-116); ANION GAP 6 (8-16); ASPARTATE AMINO TRANSFERASE 18 U/L (10-37); BILIRUBIN,TOTAL 0.5 MG/DL (0.1-1.0); BLOOD UREA NITROGEN 10 MG/DL (7-18); BUN/CREATININE RATIO 9.8 (5.4-32.0); CALCIUM 8.9 MG/DL (8.5-10.1); CHLORIDE 105 MMOL/L (99-107); CREATININE 1.02 MG/DL (0.60-1.10); ETHANOL < 0.010 GM/DL (0.0-0.010); GLUCOSE 103 MG/DL (70-104); POTASSIUM 4.3 MMOL/L (3.5-5.1); SODIUM 138 MMOL/L (135-145); TOTAL CARBON DIOXIDE 27.3 MMOL/L (24-32); TOTAL PROTEIN 7.2 G/DL (6.4-8.2); eGFR 86 ML/MIN
--- NOTE | 2020-02-09 12:43 | NUR ---
PACKET FAXED TO [facility]
[2020-02-09] MEDS ORDERED: acetaminophen 325mg tablet PO ONE (15:15)
== END 2020-02-09 16:32 ==
LOC: ER 11:10
DX: F30.9 Manic episode, unspecified (principal); M89.8X9 Other specified disorders of bone, unspecified site; R45.851 Suicidal ideations; R51 Headache; R55 Syncope and collapse; I10 Essential (primary) hypertension; Z79.899 Other long term (current) drug therapy
CPT/HCPCS: 36415; 80053; 80305; 80320; 85025; 99285